=== PATIENT | male | born 1995 | race Caucasian/White ===

== ENCOUNTER 2023-11-25 01:02 | Emergency (ER) | payer OTHER ==
[2023-11-25] MEDS ORDERED: Lidocaine 1% PF 5 ML VIAL ONE ×2 (02:10→02:18)
== END 2023-11-25 03:26 | disposition home or self-care (01) ==
LOC: ERS 01:02
DX: S62.336A Displaced fracture of neck of fifth metacarpal bone, right hand, initial encounter for closed fracture (principal); S60.410A Abrasion of right index finger, initial encounter; W22.8XXA Striking against or struck by other objects, initial encounter
CPT/HCPCS: 26605